=== PATIENT | male | born 1970 | race Caucasian/White ===

== ENCOUNTER 2017-08-19 10:36 | Emergency (ER) | payer SELFPAY ==
[~2017-08-19] VITALS: Ht 177.8 cm; Wt 189.6 kg
[~2017-08-19 10:36] MED LIST: AMLO10TA2 PO; DEPA500T PO; LIPI40TA PO; LISI-515 PO; PARO40TA2 PO; TRAZ100T4 PO
[2017-08-19 10:40] VITALS: BP 242/126; PULSE 117; RESP 26; TEMP 97.7; O2SAT 95
[2017-08-19] MEDS ORDERED: PARO40TA2 PO (11:05)
[2017-08-19] MEDS ORDERED: DIVA500T PO (11:05)
[2017-08-19 11:11] VITALS: BP 200/101; PULSE 105; RESP 22; O2SAT 97
--- NOTE | 2017-08-19 11:23 | PD ---
HPI Chief Complaint: Respiratory Symptoms Time Seen by Provider: 11:18 Travel History International Travel<30 days: No Contact w/Intl Traveler<30days: No Traveled to known affect area: No History of Present Illness HPI This 47-year-old male is complaining of shortness of breath. He says he has noted some wheezing. He has trouble laying flat. He has a history of hypertension. He has been out of his medications for some time. He has never smoked. He is not aware of fever or chills. He does get a lot of infections on his legs. He has been treated for hypertension in the past. 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 Reported Meds & Prescriptions Reported Meds & Active Scripts Active Potassium Chloride Liq (Potassium Chloride) 20 Meq/15 Ml Soln 20 Meq PO DAILY 30 Days Lasix (Furosemide) 40 Mg Tab 40 Mg PO DAILY Lisinopril 40 Mg Tab 40 Mg PO DAILY Reported Paroxetine (Paroxetine HCl) 40 Mg Tab 40 Mg PO DAILY Divalproex DR (Divalproex Sodium) 500 Mg Tabdr 500 Mg PO HS Review of Systems General / Constitutional: No: Fever, Chills Eyes: No: Diploplia, Blurred Vision HENT: No: Headaches, Vertigo Cardiovascular: No: Chest Pain or Discomfort, Palpitations Respiratory: Positive: Cough, Shortness of Breath Musculoskeletal: No: Myalgias Skin: Positive Rash Psychiatric: No: Anxiety Endocrine: No: Cold Intolerance Hematologic/Lymphatic: No: Easy Bruising Physical Exam Narrative GENERAL: Well-developed male SKIN: Focused skin assessment warm/dry. HEAD: Atraumatic. Normocephalic. EYES: Pupils equal and round. No scleral icterus. No injection or drainage. ENT: No nasal bleeding or discharge. Mucous membranes pink and moist. NECK: Trachea midline. No JVD. CARDIOVASCULAR: Regular rate and rhythm. No murmur appreciated. RESPIRATORY: No accessory muscle use. Clear to auscultation. Breath sounds equal bilaterally. GASTROINTESTINAL: Abdomen soft, non-tender, nondistended. Hepatic and splenic margins not palpable. MUSCULOSKELETAL: No obvious deformities. No clubbing. No cyanosis. Bilateral pedal edema with chronic stasis changes. There is a small amount of drainage from the right leg NEUROLOGICAL: Awake and alert. No obvious cranial nerve deficits. Motor grossly within normal limits. Normal speech. PSYCHIATRIC: Appropriate mood and affect; insight and judgment normal. Data Data Last Documented VS Vital Signs Date Time Temp Pulse Resp B/P (MAP) Pulse Ox O2 Delivery O2 Flow Rate FiO2 08/19/17 13:45 08/19/17 13:29 102 20 98 Room Air 08/19/17 10:40 97.7 Orders Orders Electrocardiogram (08/19/17 11:19) Complete Blood Count With Diff (08/19/17 11:19) Comprehensive Metabolic Panel (08/19/17 11:19) Troponin I (08/19/17 11:19) B-Type Natriuretic Peptide (08/19/17 11:19) Prothrombin Time / Inr (Pt) (08/19/17 11:19) Act Partial Throm Time (Ptt) (08/19/17 11:19) Urinalysis - C+S If Indicated (08/19/17 11:19) Magnesium (Mg) (08/19/17 11:19) Chest, Single Ap (08/19/17 11:19) Furosemide Inj (Lasix Inj) (08/19/17 11:45) Albuterol-Ipratropium Neb (Duoneb Neb) (08/19/17 12:45) Clonidine (Catapres) (08/19/17 13:00) Lisinopril (Prinivil) (08/19/17 13:00) Ed Discharge Order (08/19/17 13:33) Labs Laboratory Tests Test 08/19/17 10:50 08/19/17 11:00 Urine Color YELLOW Urine Turbidity CLEAR Urine pH 6.0 Urine Specific Stowell 1.015 Urine Protein 100 mg/dL Urine Glucose (UA) NEG mg/dL Urine Ketones NEG mg/dL Urine Occult Blood MOD Urine Nitrite NEG Urine Bilirubin NEG Urine Urobilinogen 0.2 MG/DL Urine Leukocyte Esterase NEG Urine RBC 0-3 /hpf Urine WBC 3-5 /hpf Urine Bacteria RARE /hpf Microscopic Urinalysis Comment CULT NOT INDICATED White Blood Count 10.3 TH/MM3 Red Blood Count 4.48 MIL/MM3 Hemoglobin 13.6 GM/DL Hematocrit 40.7 % Mean Corpuscular Volume 90.8 FL Mean Corpuscular Hemoglobin 30.3 PG Mean Corpuscular Hemoglobin Concent 33.3 % Red Cell Distribution Width 13.6 % Platelet Count 433 TH/MM3 Mean Platelet Volume 7.6 FL Neutrophils (%) (Auto) 72.2 % Lymphocytes (%) (Auto) 16.2 % Monocytes (%) (Auto) 7.3 % Eosinophils (%) (Auto) 1.5 % Basophils (%) (Auto) 2.8 % Neutrophils # (Auto) 7.3 TH/MM3 Lymphocytes # (Auto) 1.7 TH/MM3 Monocytes # (Auto) 0.8 TH/MM3 Eosinophils # (Auto) 0.2 TH/MM3 Basophils # (Auto) 0.3 TH/MM3 CBC Comment DIFF FINAL Differential Comment Prothrombin Time 10.1 SEC Prothromb Time International Ratio 1.0 RATIO Activated Partial Thromboplast Time 26.6 SEC Blood Urea Nitrogen 15 MG/DL Creatinine 0.83 MG/DL Random Glucose 140 MG/DL Total Protein 7.3 GM/DL Albumin 2.6 GM/DL Calcium Level 8.4 MG/DL Magnesium Level 2.0 MG/DL Alkaline Phosphatase 75 U/L Aspartate Amino Transf (AST/SGOT) 10 U/L Alanine Aminotransferase (ALT/SGPT) 18 U/L Total Bilirubin 0.3 MG/DL Sodium Level 140 MEQ/L Potassium Level 3.8 MEQ/L Chloride Level 105 MEQ/L Carbon Dioxide Level 28.8 MEQ/L Anion Gap 6 MEQ/L Estimat Glomerular Filtration Rate 99 ML/MIN Troponin I LESS THAN 0.02 NG/ML B-Type Natriuretic Peptide 139 PG/ML [facility] Medical Decision Making Medical Screen Exam Complete: Yes Emergency Medical Condition: Yes Medical Record Reviewed: Yes Differential Diagnosis Chest x-ray is read as showing cardiomegaly. The lungs are clear. BNP is normal. Patient has been given some intravenous Lasix and has had a brisk diuresis. Blood pressure has been elevated. He has been off his meds for several months. I am going to reinitiate him on lisinopril 40 and Lasix for 40 Narrative Course There is no evidence of congestive failure on the x-ray with the BMP. He will be restarted on his medications with recommendations for follow-up at the [facility] Diagnosis Primary Impression: Essential hypertension Scripts Potassium Chloride Liq (Potassium Chloride Liq) 20 Meq/15 Ml Soln 20 MEQ PO DAILY for Electrolyte Replacement for 30 Days, #450 ML 0 Refills Prov: Madhu Dong MD 08/19/17 Furosemide (Lasix) 40 Mg Tab 40 MG PO DAILY, #30 TAB 0 Refills Prov: Madhu Dong MD 08/19/17 Lisinopril (Lisinopril) 40 Mg Tab 40 MG PO DAILY for Blood Pressure Management, #30 TAB 0 Refills Prov: Madhu Dong MD 08/19/17 Disposition: 01 DISCHARGE HOME Condition: Stable Madhu Dong MD August 19, 2017 11:23
[2017-08-19 11:29] LABS: AUTOMATED NEUTROPHIL # 7.3 TH/MM3 (1.8-7.7); BASOPHIL # 0.3 TH/MM3 (0-0.2); BASOPHIL % 2.8 % (0.0-2.0); EOSINOPHIL # 0.2 TH/MM3 (0-0.4); EOSINOPHIL % 1.5 % (0.0-4.0); HEMATOCRIT 40.7 % (39.0-51.0); HEMOGLOBIN 13.6 GM/DL (13.0-17.0); LYMPH % 16.2 % (9.0-44.0); LYMPHOCYTE # 1.7 TH/MM3 (1.0-4.8); MEAN CELL VOLUME 90.8 FL (80.0-100.0); MEAN CORPUSCULAR HEMOGLOBIN 30.3 PG (27.0-34.0); MEAN CORPUSCULAR HGB CONC 33.3 % (32.0-36.0); MEAN PLATELET VOLUME 7.6 FL (7.0-11.0); MONO % 7.3 % (0.0-8.0); MONOCYTE # 0.8 TH/MM3 (0-0.9); NEUT % 72.2 % (16.0-70.0); PLATELET COUNT 433 TH/MM3 (150-450); RED BLOOD COUNT 4.48 MIL/MM3 (4.50-5.90); RED CELL DISTRIBUTION WIDTH 13.6 % (11.6-17.2); WHITE BLOOD COUNT 10.3 TH/MM3 (4.0-11.0)
[2017-08-19 11:29] LABS: BILIRUBIN, URINE NEG (NEG); BLOOD, URINE MOD (NEG); GLUCOSE,URINE NEG (NEG); KETONE, URINE NEG (NEG); NITRITE,URINE NEG (NEG); URINE COLOR YELLOW (YELLW/STRAW); URINE LEUKOCYTE ESTERASE NEG (NEG)
[2017-08-19 11:37] LABS: RBC, URINE 0-3 /hpf (0-3)
[2017-08-19 11:38] LABS: BACTERIA, URINE RARE /hpf
[2017-08-19 11:39] LABS: CHLORIDE 105 MEQ/L (98-107); SODIUM (NA) 140 MEQ/L (136-145)
[2017-08-19 11:42] LABS: ALBUMIN 2.6 GM/DL (3.4-5.0); CALCIUM 8.4 MG/DL (8.5-10.1); PROTHROMBIN TIME - PATIENT 10.1 SEC (9.8-11.6)
[2017-08-19 11:43] LABS: BICARBONATE 28.8 MEQ/L (21.0-32.0); BLOOD UREA NITROGEN 15 MG/DL (7-18); GLUCOSE,RANDOM 140 MG/DL (74-106)
[2017-08-19] MEDS ORDERED: FUROSEMIDE 40 MG/4 ML VIAL IV PUSH ONE (11:45)
--- NOTE | 2017-08-19 11:45 | RADRPT ---
EXAM DATE/TIME: 08/19/2017 11:25 [place] COMPARISON: No previous studies available for comparison. INDICATIONS : Short of breath. MEDICAL HISTORY : Hypertension. Hypercholesterolemia. Gastroesophageal reflux disease. SURGICAL HISTORY : None. ENCOUNTER: Initial ACUITY: 2 days PAIN SCORE: 0/10 LOCATION: Bilateral chest FINDINGS: Portable AP view of the chest demonstrates cardiac silhouette size at the upper limits for normal. EK G lines overlie the patient. Based on the technique, no effusion, consolidation, or pneumothorax is s een. Bones and soft tissues demonstrate no acute finding. CONCLUSION: Cardiac silhouette size at the upper limits for normal. Otherwise, no acute finding is identified. Catracho Suarez MD on August 19, 2017 at 11:41 Board Certified Radiologist. This report was verified electronically.
[2017-08-19 11:46] LABS: ALT (GPT) 18 U/L (12-78); AST (GOT) 10 U/L (15-37); CREATININE 0.83 MG/DL (0.60-1.30); GLOMERULAR FILTRATION RATE 99 ML/MIN (>89)
[2017-08-19 11:47] LABS: TOTAL BILIRUBIN ADULT 0.3 MG/DL (0.2-1.0); TOTAL PROTEIN 7.3 GM/DL (6.4-8.2)
[2017-08-19 11:48] LABS: ALKALINE PHOSPHATASE 75 U/L (45-117)
[2017-08-19 11:51] LABS: TROPONIN I LESS THAN 0.02 NG/ML (0.02-0.05)
[2017-08-19] MEDS ORDERED: RESP: ALBUTEROL 2.5 MG/IPRATROPIUM 0.5 MG NEB (SCH) NEB ONE (12:45)
[2017-08-19 12:48] VITALS: BP 212/110; PULSE 110; RESP 20; O2SAT 97
[2017-08-19] MEDS ORDERED: cloNIDine HCL 0.1 MG TAB PO ONE (13:00)
[2017-08-19] MEDS ORDERED: LISINOPRIL 20 MG TAB PO ONE (13:00)
[2017-08-19] MEDS ORDERED: FURO1TAB60 PO (13:31)
[2017-08-19] MEDS ORDERED: LISI40TA PO (13:31)
[2017-08-19] MEDS ORDERED: POTA10SO12 PO (13:31)
[2017-08-19 13:33] VITALS: BP 200/100
--- NOTE | 2017-08-19 22:53 | EKG ---
Date Performed: 08/19/2017 Time Performed: 11:27:29 PTAGE: 47 years EKG: SINUS TACHYCARDIA BORDERLINE LEFT AXIS DEVIATION When compared to previous tracing, sinus r ate has increased. ABNORMAL RHYTHM ECG PREVIOUS TRACING : 03/05/2016 11.25 DOCTOR: Willy Deng Interpretating Date/Time 08/19/2017 17:46:23
== END 2017-08-19 13:59 | disposition home or self-care (01) ==
LOC: PHED 10:36
DX: I10 Essential (primary) hypertension (principal); I51.7 Cardiomegaly; R05 Cough; R06.02 Shortness of breath; R94.31 Abnormal electrocardiogram [ECG] [EKG]; R00.0 Tachycardia, unspecified; R21 Rash and other nonspecific skin eruption; F31.9 Bipolar disorder, unspecified; E78.00 Pure hypercholesterolemia, unspecified
CPT/HCPCS: 71045; 80053; 81001; 83735; 83880; 84484; 85025; 85610; 85730; 93005; 94664; 96374; 99285; J1940